=== PATIENT | female | born 1955 | race Caucasian/White ===

== ENCOUNTER 2023-12-19 19:41 | Emergency (ER) | payer MEDICARE, OTHER ==
[2023-12-19] MEDS ORDERED: Lidocaine 1% (PF) 30 ML VIAL ONE (20:15)
[2023-12-19] MEDS ORDERED: Boostrix 0.5 ML (Tdap) VIAL (>/=7 yrs of age) ONE (20:53)
[2023-12-19] MEDS ORDERED: Ketorolac Tromethamine 30 MG (1 mL) VIAL ONE (21:40)
[2023-12-19] MEDS ORDERED: Amoxicillin/Potassium Clav 875 MG TAB ONE (21:40)
[2023-12-19] MEDS ORDERED: Bacitracin 1 PK ONE (21:40)
== END 2023-12-19 22:08 | disposition home or self-care (01) ==
LOC: MADERS 19:41
DX: S61.452A Open bite of left hand, initial encounter (principal); W54.0XXA Bitten by dog, initial encounter; Z23 Encounter for immunization
CPT/HCPCS: 12001; 90471; 90715; 96372; 99283; J1885